=== PATIENT | male | born 1995 | race Caucasian/White ===

== ENCOUNTER 2021-05-24 19:21 | Emergency (ER) | payer BC ==
[2021-05-24 19:35] VITALS: BP 142/80; PULSE 69
== END 2021-05-24 20:01 | disposition home or self-care (01) ==
LOC: JD.ED 19:21
DX: R42 Dizziness and giddiness (principal); H66.001 Acute suppurative otitis media without spontaneous rupture of ear drum, right ear
CPT/HCPCS: 99283